=== PATIENT | male | born 1990 | race Caucasian/White ===

== ENCOUNTER 2022-01-15 20:01 | Emergency (ER) | payer MEDICAID ==
[~2022-01-15] VITALS: Ht 175.3 cm; Wt 79.4 kg
[2022-01-15 20:05] VITALS: BP 129/94
--- NOTE | 2022-01-15 20:19 | NUR ---
urine to lab
[2022-01-15] MEDS ORDERED: LIDOCAINE VISCOUS 2% UD 15 ML UDC ONE (20:28)
[2022-01-15] MEDS ORDERED: MAG HYDROX/AL HYDROX/SIMETH 30 ML UDC ONE (20:28)
[2022-01-15] MEDS ORDERED: KETOROLAC TROMETHAMINE INJ 30 MG/ML VIAL ONE (20:28)
[2022-01-15] MEDS ORDERED: MAG HYDROX/AL HYDROX/SIMETH 30 ML UDC PO ONE (20:30)
[2022-01-15] MEDS ORDERED: KETOROLAC TROMETHAMINE INJ 30 MG/ML VIAL IM ONE (20:30)
[2022-01-15] MEDS ORDERED: LIDOCAINE VISCOUS 2% UD 15 ML UDC MM ONE (20:30)
[2022-01-15 21:06] LABS: BILIRUBIN,URINE NEGATIVE (NEGATIVE); COLOR,URINE YELLOW (YELLOW); LEUKOCYTE ESTERASE ,URINE NEGATIVE (NEGATIVE); NITRITE, URINE NEGATIVE (NEGATIVE); PROTEIN,URINE NEGATIVE (NEGATIVE); UGLUCOSE NEGATIVE (NEGATIVE); UROBILINOGEN,URINE 0.2 EU/dL (0.2)
[2022-01-15 21:17] LABS: BACTERIA,URINE Rare /HPF (None Seen); RBC,URINE NONE SEEN /HPF (0-2); SQUAMOUS EPITHELIAL CELL,UR Few /HPF (None Seen); WBC,URINE NONE SEEN /HPF (0-3)
[2022-01-15] MEDS ORDERED: DICY20TA11 PO (21:34)
[2022-01-15] MEDS ORDERED: MAG-55 PO (21:34)
[2022-01-15] MEDS ORDERED: IBUP-1957 PO (21:34)
== END 2022-01-15 21:42 | disposition home or self-care (01) ==
LOC: ER 20:03
DX: R10.33 Periumbilical pain (principal); Z79.899 Other long term (current) drug therapy
CPT/HCPCS: 81001; 93005; 96372; 99284; J1885